=== PATIENT | female | born 1985 | race African-American/Black ===

== ENCOUNTER 2020-11-16 08:15 | Outpatient (CLI) | payer BC, OTHER ==
[2020-11-16 14:23] LABS: SARS-CoV-2 PCR by NAA Not Detected (NotDetected)
== END 2020-11-16 08:16 | disposition home or self-care (01) ==
LOC: CSHLAB 08:15
PROVIDERS: ATTEND Obstetrics & Gynecology
DX: Z20.822 Contact with and (suspected) exposure to COVID-19 (principal)
CPT/HCPCS: 87635; U0003; U0005

== ENCOUNTER 2020-11-19 08:26 | Inpatient (IN) | payer BC, OTHER ==
[2020-11-19] MEDS ORDERED: hydrALAZINE 20 MG/ML VIAL ONE (09:22)
[2020-11-19] MEDS ORDERED: Ondansetron PF 4 MG/2 ML Vial IVP PRN ×2 (10:02→17:57)
[2020-11-19] MEDS ORDERED: HYDROcodone/Acetaminophen 5/325 mg Tablet PO PRN ×2 (10:02)
[2020-11-19] MEDS ORDERED: hydrALAZINE 20 MG/ML VIAL SLOW IVP PRN ×2 (10:02→18:14)
[2020-11-19] MEDS ORDERED: Diphenoxylate HCl/Atropine Tablet PO PRN ×2 (10:02)
[2020-11-19] MEDS ORDERED: Promethazine HCl 25 MG/ML VIAL IM PRN ×2 (10:02→17:57)
[2020-11-19] MEDS ORDERED: Ibuprofen 800 MG TAB PO PRN (10:02)
[2020-11-19] MEDS ORDERED: Misoprostol 200 MCG TAB PR PRN (10:02)
[2020-11-19] MEDS ORDERED: Lactated Ringer's 1,000 ML IV SCH (10:02)
[2020-11-19] MEDS ORDERED: Docusate 100 MG CAP PO PRN (10:02)
[2020-11-19] MEDS ORDERED: Acetaminophen 500 MG TAB PO PRN (10:02)
[2020-11-19] MEDS ORDERED: Lidocaine 1% (PF) 30 ML VIAL SC PRN (10:02)
[2020-11-19] MEDS ORDERED: Butorphanol Tartrate 1 MG/ML VIAL SLOW IVP PRN (10:02)
[2020-11-19 10:04] VITALS: BMI 41.3
[2020-11-19] MEDS ORDERED: Fentanyl 4 mcg/Bup 0.1% Cadd 100 ML ONE (10:09)
[2020-11-19] MEDS ORDERED: NS w/ Oxytocin 30 units 500 ML ONE (10:09)
[2020-11-19 10:30] LABS: Hemoglobin 11.8 g/dL (12.0-15.5); Mean Corpuscular HGB CONC 32.7 g/dL (32.0-36.0); Mean Corpuscular Hemoglobin 26.3 pg (27.0-33.0); Mean Corpuscular Volume 80.4 fl (81.6-98.3); Mean Platelet Volume 10.9 fl (7.4-10.4); Platelet Count 259 10x3/uL (150-450); RBC Distribution Width 16.5 % (11.5-14.5); Red Blood Cell (RBC) Count 4.49 10x6/uL (3.90-5.03); White Blood Cell (WBC) Count 7.9 10x3/uL (3.5-10.5)
[2020-11-19 10:47] LABS: Hep B Surf Ag Non-Reactive S/CO (NonReactive); Syphilis Antibody Nonreactive (Nonreactive); Syphilis Antibody Index 0.03 S/CO (<1.00 Non-Reactive)
[2020-11-19] MEDS ORDERED: NS w/ Oxytocin 30 units 500 ML IVPB PRN (10:48)
[2020-11-19 10:58] LABS: HBSAg Index 0.13 S/CO (0-0.99)
[2020-11-19] MEDS ORDERED: NS w/ Oxytocin 30 units 500 ML IVPB SCH ×2 (11:00→11:15)
[2020-11-19] MEDS ORDERED: ePHEDrine Sulfate 50 MG/10 ML VIAL ONE (13:17)
[2020-11-19] MEDS ORDERED: PHENYLEPHRINE-NS 100 MCG/ML 10 ML SYRINGE ONE (13:22)
[2020-11-19] MEDS ORDERED: Lidocaine 2% MPF 10 ML AMP (For Epidural Use) ONE (15:38)
[2020-11-19] MEDS ORDERED: Azithromycin 500 MG VIAL ONE (15:40)
[2020-11-19] MEDS ORDERED: Ondansetron PF 4 MG/2 ML Vial ONE (15:51)
[2020-11-19] MEDS ORDERED: Oxytocin 10 UNITS/ML VIAL ONE (15:51)
[2020-11-19] MEDS ORDERED: Morphine PF 10 MG/10 ML VIAL ONE (15:53)
[2020-11-19] MEDS ORDERED: Ketorolac Tromethamine 30 MG/ML VIAL ONE (15:53)
[2020-11-19 16:56] LABS: pH (Cord, venous) 7.226 (7.250-7.350)
[2020-11-19] MEDS ORDERED: Naloxone HCl 0.4 mg/ml Vial IVP PRN ×2 (17:57)
[2020-11-19] MEDS ORDERED: Meperidine HCl/PF 25 MG/ML VIAL SLOW IVP PRN (17:57)
[2020-11-19] MEDS ORDERED: Eucerin (Mineral Oil/Petrolatum,White) 30 gm Jar TOP PRN (17:57)
[2020-11-19] MEDS ORDERED: L&D-Morphine 4 MG/ML VIAL SLOW IVP PRN (17:57)
[2020-11-19] MEDS ORDERED: Naloxone HCl 0.4 mg/ml Vial IV PRN (17:57)
[2020-11-19] MEDS ORDERED: HYDROmorphone 2 MG/ML VIAL SLOW IVP PRN (17:57)
[2020-11-19] MEDS ORDERED: Ondansetron HCl/PF 4 MG/2 ML Vial IVP PRN (17:57)
[2020-11-19] MEDS ORDERED: Promethazine HCl 25 MG SUPP PR PRN (17:57)
[2020-11-19] MEDS ORDERED: diphenhydrAMINE 50 MG/ML VIAL IVP PRN (17:57)
[2020-11-19] MEDS ORDERED: Ketorolac Tromethamine 30 MG/ML VIAL IVP SCH (18:00)
[2020-11-19] MEDS ORDERED: Communication Order-Pharmacy FS SCH (18:00)
[2020-11-19] MEDS ORDERED: Lanolin Ointment 7 GM TUBE TOP PRN (18:14)
[2020-11-19] MEDS ORDERED: Adacel (T-DAP) 0.5 ML SYRINGE IM ONE (18:14)
[2020-11-19 19:30] LABS: Hemoglobin 10.6 g/dL (12.0-15.5)
[2020-11-19 19:43] LABS: PTT 27.3 sec (22.0-33.0)
[2020-11-19] MEDS: Ketorolac Tromethamine 30 MG/ML VIAL IVP PRN (22:30)
[2020-11-20] MEDS: Ferrous Sulfate 325 MG TAB PO SCH ×3 (00:42→21:58)
[2020-11-20] MEDS: Ketorolac Tromethamine 30 MG/ML VIAL IVP PRN (05:08)
[2020-11-20 06:25] LABS: Mean Corpuscular HGB CONC 32.5 g/dL (32.0-36.0); Mean Corpuscular Hemoglobin 26.5 pg (27.0-33.0); Mean Corpuscular Volume 81.5 fl (81.6-98.3); Mean Platelet Volume 11.4 fl (7.4-10.4); Platelet Count 208 10x3/uL (150-450); RBC Distribution Width 16.6 % (11.5-14.5); White Blood Cell (WBC) Count 13.2 10x3/uL (3.5-10.5)
[2020-11-20] MEDS ORDERED: D5 LR 500 ML IV SCH (07:15)
[2020-11-20] MEDS ORDERED: ePHEDrine Sulfate 50 MG/10 ML VIAL ONE (08:00)
[2020-11-20] MEDS ORDERED: Lidocaine 2% 10 ML INJ ONE (08:00)
[2020-11-20] MEDS ORDERED: Bupivacaine 0.25% HCL 30 ML VIAL ONE (08:00)
[2020-11-20] MEDS: Prenatal Vitamin 1 TAB PO SCH (09:39)
[2020-11-20] MEDS: Simethicone Chewable 80 MG TAB PO PRN ×3 (09:40→21:57)
[2020-11-20] MEDS: Famotidine/PF 20 mg/2ml Vial SLOW IVP SCH ×2 (09:40→22:50)
[2020-11-20] MEDS ORDERED: HYDROcodone/Acetaminophen 5/325 mg Tablet PO PRN (15:33)
[2020-11-20] MEDS: HYDROcodone/Acetaminophen 5/325 mg Tablet PO PRN ×2 (15:42→22:04)
[2020-11-20] MEDS: Ibuprofen 800 MG TAB PO SCH (21:58)
[2020-11-20] MEDS ORDERED: Famotidine 20 MG TAB PO SCH (22:00)
[2020-11-21] MEDS: HYDROcodone/Acetaminophen 5/325 mg Tablet PO PRN ×3 (02:34→18:11)
[2020-11-21] MEDS: Simethicone Chewable 80 MG TAB PO PRN ×2 (05:49→08:26)
[2020-11-21] MEDS: Ibuprofen 800 MG TAB PO SCH ×2 (05:49→13:10)
[2020-11-21] MEDS: Prenatal Vitamin 1 TAB PO SCH (08:26)
[2020-11-21] MEDS: Ferrous Sulfate 325 MG TAB PO SCH (08:26)
[2020-11-21] MEDS ORDERED: Famotidine 20 MG TAB PO SCH (09:00)
[2020-11-21 17:40] VITALS: BP 129/84; TEMP 98.1
== END 2020-11-21 18:15 | disposition home or self-care (01) | DRG 787 ==
LOC: CSHLD/OP 08:26 → CSHLD 17:34 → CSHPP 23:14
PROVIDERS: ADMIT Obstetrics & Gynecology; ATTEND Obstetrics & Gynecology
PROC: 10D00Z1 Extraction of Products of Conception, Low, Open Approach (ICD-10-PCS; principal; 2020-11-19)
PROC: 0DNW0ZZ Release Peritoneum, Open Approach (ICD-10-PCS; 2020-11-19)
PROC: 4A0HXCZ Measurement of Products of Conception, Cardiac Rate, External Approach (ICD-10-PCS; 2020-11-19)
DX: O69.4XX0 Labor and delivery complicated by vasa previa, not applicable or unspecified (principal); D62 Acute posthemorrhagic anemia; Z3A.38 38 weeks gestation of pregnancy; Z37.0 Single live birth; O99.892 Other specified diseases and conditions complicating childbirth; N73.6 Female pelvic peritoneal adhesions (postinfective); O76 Abnormality in fetal heart rate and rhythm complicating labor and delivery; I95.9 Hypotension, unspecified; O99.02 Anemia complicating childbirth; O67.9 Intrapartum hemorrhage, unspecified
CPT/HCPCS: 36415; 51702; 82805; 85027; 85610; 85730; 86780; 86850; 86900; 86901; 87340; 87635; J0360; J0456; J0690; J1200; J1885; J2274; J2405; J2590; S0020; S0028; U0003; U0005

== ENCOUNTER 2020-11-24 20:31 | Inpatient (IN) | payer BC, OTHER ==
[2020-11-24 21:24] LABS: #Eosinphils 0.3 10x3/uL (0.0-0.5); #Monocytes 0.7 10x3/uL (0.0-1.1); #Neutrophils 3.8 10x3/uL (1.5-8.4); %Basophils 0.6 % (0.0-2.0); %Eosinophils 5.2 % (0.0-6.0); %Lymphocytes 23.6 % (18.0-47.0); %Monocytes 10.8 % (0.0-10.0); %Neutrophils 59.5 % (40.0-75.0); Hemoglobin 9.8 g/dL (12.0-15.5); Mean Corpuscular HGB CONC 32.2 g/dL (32.0-36.0); Mean Corpuscular Hemoglobin 25.9 pg (27.0-33.0); Mean Corpuscular Volume 80.2 fl (81.6-98.3); Mean Platelet Volume 10.1 fl (7.4-10.4); Platelet Count 340 10x3/uL (150-450); RBC Distribution Width 15.9 % (11.5-14.5); Red Blood Cell (RBC) Count 3.79 10x6/uL (3.90-5.03); White Blood Cell (WBC) Count 6.3 10x3/uL (3.5-10.5)
[2020-11-24] MEDS ORDERED: Ondansetron PF 4 MG/2 ML Vial ONE (21:39)
[2020-11-24] MEDS ORDERED: Magnesium 2 GM/50 ML BAG (IN WATER) ONE (21:39)
[2020-11-24] MEDS ORDERED: Morphine 4 MG/ML VIAL ONE (21:39)
[2020-11-24 21:40] LABS: ALT (SGPT) 26 U/L (8-55); AST (SGOT) 31 U/L (5-34); Alkaline Phosphatase 122 U/L (40-110); Anion Gap 14 mmol/L (10-20); BUN (Urea Nitrogen) 9 mg/dL (7.0-18.7); Bilirubin, Total 0.2 mg/dL (0.2-1.2); Calc. Creatinine Clearance 0 mL/min (70-130); Calcium 8.5 mg/dL (7.8-10.44); Carbon Dioxide 22 mmol/L (22-29); Chloride 108 mmol/L (98-107); Globulin 3.3 g/dL (2.4-3.5); Glucose 81 mg/dL (70-105); Magnesium 1.8 mg/dL (1.6-2.6); Potassium 4.1 mmol/L (3.5-5.1); Protein, Total 6.3 g/dL (6.0-8.3); Sodium 140 mmol/L (136-145); Uric Acid 5.4 mg/dL (2.6-6.0)
[2020-11-24 23:05] LABS: Bilirubin Neg (Negative); Blood, Urine 50 (Negative); Clarity Slightly Cloudy (Clear); Glucose, Urine (Dipstick) Normal (Negative); Ketone, Urine Negative (Negative); Leukocyte 25 (Negative); Nitrite Negative (Negative); Protein, Urine (Dipstick) Negative (Neg-Trace); Specific Gravity, Urine 1.015 (1.002-1.036); Urobilinogen Normal mg/dL (Less than 2)
[2020-11-24 23:16] LABS: Bacteria/HPF Rare-Few HPF (None Seen); Mucous/LPF 3+ LPF (<2+); RBC/HPF 0-3 HPF (0-3); Squamous Epithelial 0-3 HPF (0-3)
[2020-11-25] MEDS ORDERED: Acetaminophen 325 MG TAB PO PRN (00:15)
[2020-11-25] MEDS ORDERED: Ondansetron ODT 4 MG TAB PO PRN (00:15)
[2020-11-25] MEDS ORDERED: Furosemide 20 MG/2 ML VIAL SLOW IVP SCH (00:30)
[2020-11-25] MEDS ORDERED: diphenhydrAMINE 25 MG CAP PO SCH (00:45)
[2020-11-25] MEDS ORDERED: Calcium Gluc 4.6 MEQ/10 ML (100 MG/ML) SLOW IVP PRN (00:51)
[2020-11-25] MEDS ORDERED: Magnesium Sulfate 20 GM/WATER 500 ML BAG IVPB SCH (01:00)
[2020-11-25 01:11] LABS: Creatinine, Urine 140.72 mg/dL (47-110)
[2020-11-25] MEDS: Magnesium Sulfate 20 gm/500 ml 20 GM/500 ML BAG IVPB SCH ×3 (01:15→22:41)
[2020-11-25 01:26] VITALS: BMI 38.0
[2020-11-25] MEDS: Ibuprofen 800 MG TAB PO PRN ×2 (05:27→18:12)
[2020-11-25] MEDS: HYDROcodone/Acetaminophen 5/325 mg Tablet PO PRN ×2 (11:23→22:40)
[2020-11-25] MEDS: Labetalol 100 MG TAB PO SCH (15:34)
[2020-11-25] MEDS ORDERED: Simethicone Chewable 80 MG TAB PO PRN (16:21)
[2020-11-25] MEDS ORDERED: Bisacodyl 10 MG SUPP PR PRN (16:21)
[2020-11-25] MEDS ORDERED: hydrALAZINE 20 MG/ML VIAL SLOW IVP PRN (16:21)
[2020-11-25] MEDS: Docusate Calcium (SURFAK) 240 MG CAP PO SCH (21:12)
[2020-11-25 22:29] LABS: SARS-CoV-2 PCR by NAA Not Detected (NotDetected)
[2020-11-26] MEDS: Ibuprofen 800 MG TAB PO PRN ×2 (02:50→13:31)
[2020-11-26] MEDS: Labetalol 100 MG TAB PO SCH ×2 (02:51→15:06)
[2020-11-26] MEDS: HYDROcodone/Acetaminophen 5/325 mg Tablet PO PRN ×2 (08:11→13:32)
[2020-11-26] MEDS: Docusate Calcium (SURFAK) 240 MG CAP PO SCH (08:11)
[2020-11-26 12:10] VITALS: BP 134/67; TEMP 98.5
== END 2020-11-26 17:30 | disposition home or self-care (01) | DRG 776 ==
LOC: CSHERS 20:31 → CSHLD 11-25 00:14 → CSHANTE 11-25 19:42
PROVIDERS: ADMIT Obstetrics & Gynecology; ATTEND Obstetrics & Gynecology
DX: O14.95 Unspecified pre-eclampsia, complicating the puerperium (principal); O13.5 Gestational [pregnancy-induced] hypertension without significant proteinuria, complicating the puerperium; O90.89 Other complications of the puerperium, not elsewhere classified; R42 Dizziness and giddiness; O90.81 Anemia of the puerperium; D64.9 Anemia, unspecified; Z20.822 Contact with and (suspected) exposure to COVID-19
CPT/HCPCS: 80053; 81003; 81015; 82570; 83605; 83735; 83880; 84156; 84550; 85025; 86850; 86900; 86901; 87086; 87635; 93005; 96365; 96375; J1940; J2270; J2405; J3475; Q0162; U0003; U0005

== ENCOUNTER 2022-02-09 09:12 | Emergency (ER) | payer BC, OTHER ==
[2022-02-09] MEDS ORDERED: Ketorolac Tromethamine 30 MG/ML VIAL ONE (10:03)
== END 2022-02-09 10:48 | disposition home or self-care (01) ==
LOC: CSHERS 09:12
DX: J06.9 Acute upper respiratory infection, unspecified (principal)
CPT/HCPCS: 96372; 99282; J1885

== ENCOUNTER 2023-01-27 06:06 | Emergency (ER) | payer BC, SELFPAY ==
[2023-01-27 07:18] LABS: Bilirubin Neg (Negative); Blood, Urine Negative (Negative); Glucose, Urine (Dipstick) Normal (Negative); Ketone, Urine Negative (Negative); Leukocyte Negative (Negative); Nitrite Negative (Negative); Protein, Urine (Dipstick) Negative (Neg-Trace); Specific Gravity, Urine 1.015 (1.005-1.030); Urobilinogen Normal mg/dL (Less than 2); pH, Urine 6.5 (5.0-9.0)
[2023-01-27 07:20] LABS: Clarity Clear (Clear); Pregnancy Test - Urine (BHCG) Negative (Negative); Pregu Control Background? CLEAR/WHITE (CLR/WHITE); Pregu Control Bar Appear? YES (CONTROL BAR); Specific Gravity 1.015 (1.002-1.036)
[2023-01-27 07:20] LABS: #Basophils 0.1 10x3/uL (0.0-0.2); #Eosinphils 0.2 10x3/uL (0.0-0.5); #Monocytes 0.5 10x3/uL (0.0-1.1); #Neutrophils 3.5 10x3/uL (1.5-8.4); %Basophils 1.1 % (0.0-2.0); %Eosinophils 3.3 % (0.0-6.0); %Lymphocytes 28.8 % (18.0-47.0); %Monocytes 8.5 % (0.0-10.0); %Neutrophils 57.8 % (40.0-75.0); Hemoglobin 12.3 g/dL (12.0-15.5); Mean Corpuscular HGB CONC 31.7 g/dL (32.0-36.0); Mean Corpuscular Hemoglobin 24.8 pg (27.0-33.0); Mean Corpuscular Volume 78.4 fl (81.6-98.3); Mean Platelet Volume 11.5 fl (7.4-10.4); Platelet Count 397 10x3/uL (150-450); RBC Distribution Width 17.7 % (11.5-14.5); Red Blood Cell (RBC) Count 4.95 10x6/uL (3.90-5.03); White Blood Cell (WBC) Count 6.1 10x3/uL (3.5-10.5)
[2023-01-27 07:33] LABS: Bacteria/HPF None Seen HPF (None Seen); CAUTI Indications for Culture Pelvic or flank pain; RBC/HPF None Seen HPF (0-3); Squamous Epithelial 0-3 HPF (0-3); Urine Culture Reflex No No; WBC/HPF None Seen HPF (0-3)
[2023-01-27 07:38] LABS: ALT (SGPT) 10 U/L (8-55); AST (SGOT) 18 U/L (5-34); Albumin 3.8 g/dL (3.5-5.0); Alkaline Phosphatase 114 U/L (40-110); Anion Gap 12 mmol/L (10-20); BUN (Urea Nitrogen) 9 mg/dL (7.0-18.7); Bilirubin, Total 0.3 mg/dL (0.2-1.2); Calc. Creatinine Clearance 0 mL/min (70-130); Calcium 8.8 mg/dL (7.8-10.44); Carbon Dioxide 25 mmol/L (22-29); Chloride 105 mmol/L (98-107); Estimated GFR 98; Globulin 3.7 g/dL (2.4-3.5); Glucose 87 mg/dL (70-105); Lipase 27 U/L (8-78); Potassium 4.2 mmol/L (3.5-5.1); Protein, Total 7.5 g/dL (6.0-8.3); Sodium 138 mmol/L (136-145)
[2023-01-27] MEDS ORDERED: Ondansetron ODT 4 MG TAB ONE (07:49)
[2023-01-27] MEDS ORDERED: Mag-Al Plus 1200 MG/1200 MG/120 MG/30 ML UDCUP ONE (07:50)
== END 2023-01-27 08:11 | disposition home or self-care (01) ==
LOC: CSHERS 06:06
DX: K29.70 Gastritis, unspecified, without bleeding (principal); K21.9 Gastro-esophageal reflux disease without esophagitis
CPT/HCPCS: 36415; 80053; 81001; 81025; 83690; 84484; 85025; 93005; Q0162

== ENCOUNTER 2023-08-06 22:25 | Emergency (ER) | payer SELFPAY ==
[2023-08-07] MEDS ORDERED: Ibuprofen 200 MG TAB ONE (00:27)
[2023-08-07 01:16] LABS: SARS-CoV-2 NAA Rapid Test Not Detected (NotDetected)
== END 2023-08-07 01:32 | disposition home or self-care (01) ==
LOC: CSHERS 22:25
DX: J20.9 Acute bronchitis, unspecified (principal)
CPT/HCPCS: 99283

== ENCOUNTER 2023-12-25 11:50 | Outpatient (CLI) | payer OTHER | END 2023-12-25 11:51 | disposition home or self-care (01) | LOC: CSHMAMMO 11:50 | PROVIDERS: ATTEND Family Medicine | DX: Z12.31 Encounter for screening mammogram for malignant neoplasm of breast (principal) | CPT/HCPCS: 77063; 77067 ==

== ENCOUNTER 2024-09-23 18:31 | Emergency (ER) | payer OTHER ==
[2024-09-23 19:54] LABS: Bilirubin Neg (Negative); Blood, Urine 10 (Negative); Clarity Clear (Clear); Glucose, Urine (Dipstick) Normal (Negative); Ketone, Urine Negative (Negative); Leukocyte 25 (Negative); Nitrite Negative (Negative); Protein, Urine (Dipstick) 15 mg/dl (Neg-Trace); Specific Gravity, Urine 1.025 (1.005-1.030)
[2024-09-23 20:29] LABS: Bacteria/HPF Rare-Few HPF (None Seen); CAUTI Indications for Culture Pelvic or flank pain; RBC/HPF 0-3 HPF (0-3); Squamous Epithelial 0-3 HPF (0-3)
[2024-09-23 20:31] LABS: Mucous/LPF 2+ LPF (<2+); Trichomonas/HPF Rare HPF (None Seen)
[2024-09-23 20:32] LABS: Calcium Oxalate Crystals Rare HPF (None Seen)
[2024-09-23 20:33] LABS: Urine Culture Reflex No No
== END 2024-09-23 20:42 | disposition home or self-care (01) ==
LOC: CSHERS 18:31
DX: A59.01 Trichomonal vulvovaginitis (principal)
CPT/HCPCS: 81001; 87480; 87510; 87660; 99283

== ENCOUNTER 2025-01-24 09:55 | Observation (INO) | payer OTHER ==
[2025-01-24] MEDS ORDERED: Iopamidol 370 76% 100 ML VIAL ONE (09:58)
[2025-01-24 10:54] LABS: INR-International Normal Ratio 1.1; PTT 27.6 sec (22.0-33.0); Prothrombin Time 11.6 sec (9.5-12.1)
[2025-01-24] MEDS ORDERED: Aspirin Chewable 81 MG TAB ONE (10:57)
[2025-01-24] MEDS ORDERED: Acetaminophen 500 MG TAB ONE (10:57)
[2025-01-24 10:58] LABS: #Basophils 0.08 10x3/uL (0.0-0.2); #Eosinophils 0.11 10x3/uL (0.0-0.5); #Monocytes 0.49 10x3/uL (0.0-1.1); #Neutrophils 3.84 10x3/uL (1.5-8.4); %Basophils 1.3 % (0.0-2.0); %Eosinophils 1.8 % (0.0-6.0); %Lymphocytes 24.1 % (18.0-47.0); %Monocytes 8.2 % (0.0-10.0); %Neutrophils 64.4 % (40.0-75.0); Hematocrit 41.0 % (34.9-44.5); Hemoglobin 13.7 g/dL (12.0-15.5); Mean Corpuscular Hemoglobin 28.2 pg (27.0-33.0); Mean Corpuscular Volume 84.5 fL (81.6-98.3); Platelet Count 415 10x3/uL (150-450); Red Blood Cell (RBC) Count 4.85 10x6/uL (3.90-5.03); White Blood Cell (WBC) Count 5.97 10x3/uL (3.5-10.5)
[2025-01-24 11:01] LABS: Troponin I Less than 0.010 ng/mL (< 0.028)
[2025-01-24 11:09] LABS: ALT (SGPT) 11 U/L (Less than 34); AST (SGOT) 18 U/L (11-34); Albumin 3.8 g/dL (3.1-4.5); Alkaline Phosphatase 102 U/L (40-110); Anion Gap 14 mmol/L (10-20); BUN (Urea Nitrogen) 9 mg/dL (7.0-18.7); Bilirubin, Total 0.3 mg/dL (0.3-1.2); Calc. Creatinine Clearance 0 mL/min (70-130); Calcium 9.3 mg/dL (7.8-10.44); Carbon Dioxide 23 mmol/L (22-29); Chloride 107 mmol/L (98-107); Globulin 4.0 g/dL (2.4-3.5); Glucose 77 mg/dL (70-105); Potassium 4.1 mmol/L (3.5-5.1); Sodium 140 mmol/L (136-145)
[2025-01-24] MEDS ORDERED: diphenhydrAMINE 50 MG/ML VIAL ONE (11:50)
[2025-01-24] MEDS ORDERED: Metoclopramide HCl 10 MG (2 mL) VIAL ONE (11:50)
[2025-01-24] MEDS ORDERED: Ondansetron PF 4 MG/2 ML Vial IVP PRN (11:53)
[2025-01-24] MEDS ORDERED: hydrALAZINE 20 MG/ML VIAL SLOW IVP PRN (11:53)
[2025-01-24] MEDS ORDERED: Senokot S 8.6-50 MG TAB PO PRN (11:53)
[2025-01-24] MEDS ORDERED: Melatonin 3 MG TAB PO PRN (11:53)
[2025-01-24 13:56] VITALS: BMI 39.1
[2025-01-24] MEDS: Acetaminophen 325 MG TAB PO PRN (20:16)
[2025-01-24] MEDS: Bacitracin-Polymyxin B Opth Oint 3.5 GM TUBE L EYE SCH (20:47)
[2025-01-25 04:46] LABS: #Basophils 0.08 10x3/uL (0.0-0.2); #Eosinophils 0.20 10x3/uL (0.0-0.5); #Monocytes 0.43 10x3/uL (0.0-1.1); #Neutrophils 3.49 10x3/uL (1.5-8.4); %Basophils 1.3 % (0.0-2.0); %Eosinophils 3.2 % (0.0-6.0); %Lymphocytes 33.2 % (18.0-47.0); %Monocytes 6.8 % (0.0-10.0); %Neutrophils 55.2 % (40.0-75.0); Hematocrit 38.8 % (34.9-44.5); Hemoglobin 12.7 g/dL (12.0-15.5); Mean Corpuscular Hemoglobin 27.7 pg (27.0-33.0); Mean Corpuscular Volume 84.7 fL (81.6-98.3); Platelet Count 383 10x3/uL (150-450); Red Blood Cell (RBC) Count 4.58 10x6/uL (3.90-5.03); White Blood Cell (WBC) Count 6.32 10x3/uL (3.5-10.5)
[2025-01-25 05:05] LABS: Cardiac Risk 2.2 (Less than 4.5); Cholesterol 112 mg/dl (< 200 Desired); HDL Cholesterol 52 mg/dL (>60 Neg Risk); LDL Cholesterol, Calculated 51 mg/dL; Triglycerides 45 mg/dL (Less than 150)
[2025-01-25 05:27] LABS: Anion Gap 15 mmol/L (10-20); BUN (Urea Nitrogen) 10 mg/dL (7.0-18.7); Calc. Creatinine Clearance 151 mL/min (70-130); Calcium 8.6 mg/dL (7.8-10.44); Carbon Dioxide 22 mmol/L (22-29); Chloride 108 mmol/L (98-107); Glucose 81 mg/dL (70-105); Potassium 3.8 mmol/L (3.5-5.1); Sodium 141 mmol/L (136-145)
[2025-01-25] MEDS: Aspirin 81 mg Enteric Coated Tablet PO SCH (08:02)
[2025-01-25] MEDS: Enoxaparin 40 MG (0.4 mL) SYRINGE SC SCH (08:04)
[2025-01-25 12:30] VITALS: BP 132/76; TEMP 97.9
== END 2025-01-25 11:40 | disposition home or self-care (01) ==
LOC: CSHERS 09:55 → CSHTELE 12:18
PROVIDERS: ADMIT Internal Medicine; ATTEND Internal Medicine
PROC: B24BZZZ Ultrasonography of Heart with Aorta (ICD-10-PCS; principal; 2025-01-24)
DX: G43.909 Migraine, unspecified, not intractable, without status migrainosus (principal); I10 Essential (primary) hypertension; Z98.84 Bariatric surgery status; Z87.59 Personal history of other complications of pregnancy, childbirth and the puerperium; Z90.721 Acquired absence of ovaries, unilateral
CPT/HCPCS: 36415; 36416; 70450; 70496; 70498; 70551; 71045; 80048; 80053; 80061; 83036; 84443; 84484; 85025; 85610; 85730; 93005; 93306; 94760; 96365; 96372; 96375; G0378; J1200; J1650; J2765; Q9967